=== PATIENT | female | born 1970 | race Caucasian/White ===

== ENCOUNTER 2017-10-11 05:12 | Emergency (ER) | payer SELFPAY ==
[2017-10-11] MEDS ORDERED: Ondansetron HCl/PF 4 MG/2 ML Vial ONE (05:35)
[2017-10-11 05:36] LABS: Bilirubin Negative (Negative); Blood, Urine Trace (Negative); Clarity Clear (Clear); Glucose, Urine (Dipstick) Negative (Negative); Leukocyte Negative (Negative); Nitrite Negative (Negative); Protein, Urine (Dipstick) Negative (Neg-Trace); Specific Gravity, Urine 1.025 (1.005-1.030); Urobilinogen 0.2 mg/dL (0.2-1.0); pH, Urine 5.5 (5.0-9.0)
[2017-10-11 05:42] LABS: #Basophils 0.1 thou/uL (0.0-0.2); #Eosinphils 0.1 thou/uL (0.0-0.7); #Monocytes 0.8 thou/uL (0.11-0.59); #Neutrophils 6.3 thou/uL (1.40-6.50); %Basophils 0.7 % (0.0-1.0); %Eosinophils 1.3 % (0.0-10.0); %Monocytes 8.1 % (0.0-10.0); %Neutrophils 67.9 % (42.0-75.0); Hemoglobin 12.5 g/dL (12.0-16.0); Mean Corpuscular HGB CONC 32.3 g/dL (32.0-36.0); Mean Corpuscular Hemoglobin 26.6 pg (27.0-31.0); Mean Corpuscular Volume 82.3 fl (81.0-99.0); Mean Platelet Volume 6.2 fL (7.4-10.4); Platelet Count 321 thou/uL (130-400); Red Blood Cell (RBC) Count 4.68 mill/uL (4.20-5.40); White Blood Cell (WBC) Count 9.3 thou/uL (4.8-10.8)
[2017-10-11] MEDS ORDERED: Famotidine In NaCl 20 mg/50 ml Premix Bag ONE (05:42)
[2017-10-11] MEDS ORDERED: Fentanyl 100 MCG/2 ML VIAL ONE ×2 (05:42→07:31)
[2017-10-11 05:49] LABS: Bacteria/HPF None Seen HPF (None Seen); RBC/HPF 0-3 HPF (0-3); Squamous Epithelial 0-3 HPF (0-3); WBC/HPF 0-3 HPF (0-3); Yeast-All Forms Rare HPF (None Seen)
[2017-10-11 05:55] LABS: Anion Gap 14 mmol/L (10-20); BUN (Urea Nitrogen) 13 mg/dL (7.0-18.7); Calc. Creatinine Clearance 0 mL/min (70-130); Carbon Dioxide 21 mmol/L (22-29); Chloride 108 mmol/L (98-107); Estimated GFR-MDRD Greater than 90; Glucose 112 mg/dL (70-105); Potassium 3.8 mmol/L (3.5-5.1); Sodium 139 mmol/L (136-145)
[2017-10-11] MEDS ORDERED: Promethazine HCl 25 MG/ML VIAL ONE (07:31)
[2017-10-11] MEDS ORDERED: Sodium Chloride 0.9% 1,000 ML BAG ONE (07:47)
[2017-10-11] MEDS ORDERED: Sodium Chloride 0.9% 100 ML BAG ONE (07:47)
--- NOTE | 2017-10-11 08:36 | CT ---
CT ABDOMEN AND PELVIS WITH IV CONTRAST: Date: 10/11/17 HISTORY: Epigastric pain. FINDINGS: The lung bases are unremarkable. There is mild fatty infiltration of the liver. The spleen, pancreas, adrenal glands, and kidneys are normal. Tiny gallstones are present. There is pericholecystic inflam matory change. No free air or lymphadenopathy is seen. Uterus is present. A normal appearing appendix is noted. There are mild degenerative changes in the spine. IMPRESSION: 1. Findings are suspicious for acute calculus cholecystitis. 2. Mild fatty infiltration of the liver. POS: [facility]
[2017-10-11] MEDS ORDERED: Iopamidol 370 76% 100 ML VIAL ONE (10:40)
== END 2017-10-11 08:20 | disposition home or self-care (01) ==
LOC: MADERS 05:12
DX: K80.20 Calculus of gallbladder without cholecystitis without obstruction (principal); Z79.899 Other long term (current) drug therapy
CPT/HCPCS: 74177; 80048; 81003; 81015; 82150; 85025; 96365; 96367; 96375; 96376; J2405; J2550; J3010; J7050

== ENCOUNTER 2023-10-11 15:09 | Emergency (ER) | payer OTHER ==
[2023-10-11] MEDS ORDERED: Boostrix 0.5 ML (Tdap) VIAL (>/=7 yrs of age) ONE (16:18)
== END 2023-10-11 16:39 | disposition home or self-care (01) ==
LOC: MADERS 15:09
DX: S61.211A Laceration without foreign body of left index finger without damage to nail, initial encounter (principal); Z23 Encounter for immunization; W27.4XXA Contact with kitchen utensil, initial encounter
CPT/HCPCS: 12001; 90471; 90715